=== PATIENT | male | born 1965 | race Hispanic/Latino ===

== ENCOUNTER → 2022-01-23 | Outpatient (CLI) | payer BC | END | disposition home or self-care (01) | LOC: RAH 15:07 | PROVIDERS: ATTEND Student in an Organized Health Care Education/Training Program | DX: S83.241A Other tear of medial meniscus, current injury, right knee, initial encounter (principal); S83.242A Other tear of medial meniscus, current injury, left knee, initial encounter; M17.11 Unilateral primary osteoarthritis, right knee; X58.XXXA Exposure to other specified factors, initial encounter; Y93.89 Activity, other specified; Y92.89 Other specified places as the place of occurrence of the external cause; Y99.8 Other external cause status | CPT/HCPCS: 73721 ==